=== PATIENT | female | born 1985 | race African-American/Black ===

== ENCOUNTER 2017-10-26 20:28 | Emergency (ER) | payer BC ==
[2017-10-26] MEDS ORDERED: ASPIRIN 81 MG TABLET, CHEWABLE PO ONE (20:50)
--- NOTE | 2017-10-26 20:50 | ER Document Report ---
ED Medical Screen (RME) - General Chief Complaint: Chest Pain Stated Complaint: CHEST PAIN Time Seen by Provider: 10/26/17 20:37 Notes: RAPID MEDICAL EVALUATION DISCLOSURE I have seen this patient as part of a Rapid Medical Evaluation and, if applicable, placed any initially appropriate orders. The patient will be seen and fully evaluated, including a full history and physical exam, by a provider ( in Main ED or Fast Track) when a room becomes available. 32-year-old female PMH hypertension here with complaints of left-sided sharp chest pain radiating up to the left shoulder and to the back that started yesterday and has progressed into today. She has had associated nausea and dizziness but no shortness of breath or vomiting or diaphoresis. She is supposed to be on blood pressure medication but has been off of it for the last 2 months because she has been working out a lot to try to get her blood pressure under control since she wants to join the . She tried 1 of her blood pressure pills today to see if this would help with the symptoms. She denies any prior history of [place] or coronary artery disease. TRAVEL OUTSIDE OF THE [place] IN LAST 30 DAYS: No
[2017-10-26 21:21] LABS: ABSOLUTE BASOPHILS # (AUTO) 0.1 10^3/uL (0.0-0.2); ABSOLUTE EOSINOPHILS # (AUTO) 0.2 10^3/uL (0.0-0.6); ABSOLUTE LYMPHOCYTES (AUTO) 2.4 10^3/uL (0.5-4.7); ABSOLUTE MONOCYTES (AUTO) 0.5 10^3/uL (0.1-1.4); ABSOLUTE NEUT (AUTO) 5.3 10^3/uL (1.7-8.2); BASOPHILS % (AUTO) 0.8 % (0-2); EOSINOPHILS % (AUTO) 2.6 % (0-6); HEMATOCRIT 40.8 % (36.0-47.0); HEMOGLOBIN 14.5 g/dL (12.0-15.5); LYMPHOCYTES % (AUTO) 28.4 % (13-45); MEAN CORPUSCULAR HEMOGLOBIN 34.3 pg (27.0-33.4); MEAN CORPUSCULAR HGB CONC 35.7 g/dL (32.0-36.0); MEAN CORPUSCULAR VOLUME 96 fl (80-97); MONOCYTES % (AUTO) 5.8 % (3-13); PLATELET COUNT 252 10^3/uL (150-450); RED BLOOD COUNT 4.24 10^6/uL (3.72-5.28); SEGMENTED NEUTROPHILS % (AUTO) 62.4 % (42-78); TOTAL CELLS COUNTED % (AUTO) 100 %; WHITE BLOOD COUNT 8.5 10^3/uL (4.0-10.5)
[2017-10-26 21:22] LABS: APPEARANCE,URINE SLIGHTLY-CLOUDY; BILIRUBIN,URINE NEGATIVE (NEGATIVE); COLOR,URINE YELLOW; GLUCOSE, URINE NEGATIVE (NEGATIVE); KETONES,URINE NEGATIVE (NEGATIVE); LEUKOCYTE ESTERASE,URINE LARGE (NEGATIVE); NITRITE,URINE NEGATIVE (NEGATIVE); PROTEIN,URINE NEGATIVE (NEGATIVE); URINE SPECIFIC GRAVITY 1.016; UROBILINOGEN,URINE NEGATIVE mg/dL (<2.0)
--- NOTE | 2017-10-26 21:27 | RADIOLOGY REPORT (SQ) ---
EXAM DESCRIPTION: CHEST 2 VIEWS COMPLETED DATE/TIME: 10/26/2017 9:17 pm REASON FOR STUDY: CP COMPARISON: None. EXAM PARAMETERS: NUMBER OF VIEWS: two views TECHNIQUE: Digital Frontal and Lateral radiographic views of the chest acquired. RADIATION DOSE: NA LIMITATIONS: none FINDINGS: LUNGS AND PLEURA: No opacities, masses or pneumothorax. No pleural effusion. MEDIASTINUM AND HILAR STRUCTURES: No masses or contour abnormalities. HEART AND VASCULAR STRUCTURES: Heart normal size. No evidence for failure. BONES: No acute findings. HARDWARE: None in the chest. OTHER: No other significant finding. IMPRESSION: NO ACUTE RADIOGRAPHIC FINDING IN THE CHEST. TECHNICAL DOCUMENTATION: JOB ID: [id number] [place]-[id number] [employer]- All Rights Reserved Reading location - IP/workstation name: [email or web address]
[2017-10-26 21:38] LABS: ANION GAP 13 (5-19); BLOOD UREA NITROGEN 17 mg/dL (7-20); CARBON DIOXIDE 29 mmol/L (22-30); CHLORIDE 99 mmol/L (98-107); GLUCOSE 117 mg/dL (75-110); POTASSIUM 3.9 mmol/L (3.6-5.0); SODIUM 140.9 mmol/L (137-145)
--- NOTE | 2017-10-26 21:42 | ER Document Report ---
ED General - General Chief Complaint: Chest Pain Stated Complaint: CHEST PAIN Time Seen by Provider: 10/26/17 20:37 Notes: Patient is a 32-year-old female comes emergency department for chief complaint of pain in the left upper side of her chest. She states pain started yesterday , it worsened today after she finished working out, she states it hurts when she moves. At rest she denies any symptoms. She denies shortness of breath, nausea vomiting, fever or chills. She denies remembering any injury. She denies smoking, she denies any recreational drugs, denies alcohol. She denies any daily medications, previously was on blood pressure medication but has come off with diet and exercise. She denies any known family history of cardiac disease. She denies recent travel or surgery. TRAVEL OUTSIDE OF THE [place] IN LAST 30 DAYS: No Past Medical History - General Information source: Patient - Social History Smoking Status: Never Smoker Chew tobacco use (# tins/day): No Frequency of alcohol use: None Drug Abuse: None Lives with: Family Family History: Reviewed & Not Pertinent Patient has suicidal ideation: No Patient has homicidal ideation: No - Past Medical History Cardiac Medical History: Reports: Hx Hypertension Renal/ Medical History: Denies: Hx Peritoneal Dialysis Review of Systems - Review of Systems Constitutional: No symptoms reported EENT: No symptoms reported Cardiovascular: See HPI Respiratory: No symptoms reported Gastrointestinal: No symptoms reported Genitourinary: No symptoms reported Female Genitourinary: No symptoms reported Musculoskeletal: See HPI Skin: No symptoms reported Hematologic/Lymphatic: No symptoms reported Neurological/Psychological: No symptoms reported Physical Exam - Vital signs Vitals: Temp Pulse Resp BP Pulse Ox 98.6 F 88 16 136/96 H 99 10/26/17 20:48 10/26/17 20:48 10/26/17 20:48 10/26/17 20:48 10/26/17 20:48 Interpretation: Normal - General General appearance: Appears well, Alert - HEENT Head: Normocephalic, Atraumatic Eyes: Normal Pupils: PERRL - Respiratory Respiratory status: No respiratory distress Chest status: Tender - Tenderness which is reproducible over the left upper chest wall just inferior to the left clavicle, remaining chest is nontender, unremarkable exam otherwise Breath sounds: Normal Chest palpation: Normal - Cardiovascular Rhythm: Regular Heart sounds: Normal auscultation, S1 appreciated, S2 appreciated Murmur: No Normal capillary refill: Yes - Abdominal Inspection: Normal Distension: No distension Bowel sounds: Normal Tenderness: Nontender. No: Tender, Guarding Organomegaly: No organomegaly - Back Back: Normal, Nontender - Extremities General upper extremity: Normal inspection, Nontender, Normal color, Normal ROM , Normal temperature General lower extremity: Normal inspection, Nontender, Normal color, Normal ROM , Normal temperature, Normal weight bearing. No: Angelia's sign - Neurological Neuro grossly intact: Yes Cognition: Normal Orientation: AAOx4 Kenner Coma Scale Eye Opening: Spontaneous Deny Coma Scale Verbal: Oriented Kenner Coma Scale Motor: Obeys Commands Kenner Coma Scale Total: 15 Speech: Normal Motor strength normal: LUE, RUE, LLE, RLE Sensory: Normal - Psychological Associated symptoms: Normal affect, Normal mood - Skin Skin Temperature: Warm Skin Moisture: Dry Skin Color: Normal Course - Re-evaluation Re-evalutation: Patient very well-appearing, chest x-ray unremarkable, EKG sinus rhythm with no T-wave inversions or ST segment changes in consecutive leads. Laboratory workup is unremarkable including cardiac enzymes which was performed from triage. Patient has reproducible chest wall pain, pain is worse with movement, appears to be the source. Very low suspicion of ACS, PE, aortic dissection, or even infection. Discussed with patient, after discussion of different options patient prefers anti-inflammatory, this was provided, discussed follow-up, return precautions, patient states satisfaction and agreement. - Vital Signs Vital signs: Temp Pulse Resp BP Pulse Ox 98.6 F 88 19 119/92 H 99 10/26/17 20:48 10/26/17 20:48 10/26/17 23:01 10/26/17 23:01 10/26/17 23:01 - Laboratory Result Diagrams: 10/26/17 20:55 10/26/17 20:55 Laboratory results interpreted by me: 10/26/17 10/26/17 10/26/17 20:55 20:55 20:55 MCH 34.3 H Glucose 117 H Urine Blood SMALL H Ur Leukocyte Esterase LARGE H Discharge - Discharge Clinical Impression: Chest wall pain Condition: Stable Disposition: HOME, SELF-CARE Additional Instructions: Your workup does not show concerning abnormalities, your examination and evaluation are consistent with costochondritis as discussed. I recommend the naproxen as prescribed, avoid lifting or twisting, symptoms should improve and resolve with time. See additional instructions below. Return for any concerning symptoms. Costochondritis Your chest pain is coming from the rib cartilages in the chest wall. This is often caused by subtle straining of the ribs near the breastbone. The strain can occur from a mild injury, coughing or sneezing with a "cold," vigorous vomiting, or even from rib compression while sleeping. Often the pain doesn't begin until a couple of days after the strain. Persons with arthritis are especially prone to this type of pain, due to inflammation of the cartilage joints near the breast bone. But often, there is no clear reason why it happens. Rest from strenuous physical activity. This kind of chest pain is usually made worse by movement of the chest. Depending on the symptoms, we may prescribe medicine for pain and inflammation. Apply gentle warmth to the painful area for 15 minutes every hour or two. You should call contact the doctor immediately if things change. Further evaluation is needed if you develop a fever or cough, if the nature of the pain changes, or if you become short of breath. Prescriptions: Naproxen 500 mg PO BID #20 tablet
[2017-10-26 23:05] VITALS: BP 119/92
--- NOTE | 2017-10-27 07:27 | EKG REPORT ---
SEVERITY:- ABNORMAL ECG - SINUS RHYTHM PROBABLE LEFT ATRIAL ABNORMALITY PROBABLE LEFT VENTRICULAR HYPERTROPHY : Confirmed by: Christiano Adkins MD 27-Oct-2017 07:26:57
== END 2017-10-26 23:05 | disposition home or self-care (01) ==
LOC: ER 20:28
DX: R07.89 Other chest pain (principal); I10 Essential (primary) hypertension
CPT/HCPCS: 36415; 71046; 80048; 81001; 81025; 84484; 85025; 93005; 93010; 99285

== ENCOUNTER 2018-01-19 17:15 | Emergency (ER) | payer BC ==
[2018-01-19 17:26] VITALS: BP 133/92
--- NOTE | 2018-01-19 17:37 | ER Document Report ---
ED General - General Chief Complaint: Abdominal Pain Stated Complaint: LEFT KNEE PAIN, SWELLING Time Seen by Provider: 01/19/18 17:26 Mode of Arrival: Ambulatory Information source: Patient Notes: Chief complaint: Left knee pain History of complain:( obtained from----patient) 32 years old female 2 days ago while she was getting off the seated position with the knee bend suddenly felt a pop when she was trying to extend and since then Pain over the back of the knee as well as pain over the left hip. Therefore present to the ED able to ambulate without major discomfort. Onset: As above sudden Duration: 2 days ago Severity: Mild to moderate Quality: Sharp Context: As described above Exacerbating factor and relieving factors: Bending the knee REVIEW OF SYSTEMS: CONSTITUTIONAL : Denies fever, chills, or sweats. Denies recent illness. EENT: Denies eye, ear, throat, or mouth pain or symptoms. Denies nasal or sinus congestion or discharge. Denies throat, tongue, or mouth swelling or difficulty swallowing. CARDIOVASCULAR: Denies chest pain. Denies palpitations or racing or irregular heart beat. Denies ankle edema. RESPIRATORY: Denies cough, cold, or chest congestion. Denies shortness of breath, difficulty breathing, or wheezing. GASTROINTESTINAL: Denies distention. Denies nausea, vomiting, or diarrhea. Denies blood in vomitus, stools, or per rectum. Denies black, tarry stools. Denies constipation. GENITOURINARY: Denies difficulty urinating, painful urination, burning, frequency, blood in urine, or discharge. FEMALE GENITOURINARY: Denies vaginal bleeding, heavy or abnormal periods, irregular periods. Denies vaginal discharge or odor. MUSCULOSKELETAL: Denies back or neck pain or stiffness. Denies joint pain or swelling. SKIN: Denies rash, lesions or sores. HEMATOLOGIC : Denies easy bruising or bleeding. LYMPHATIC: Denies swollen, enlarged glands. NEUROLOGICAL: Denies confusion or altered mental status. Denies passing out or loss of consciousness. Denies dizziness or lightheadedness. Denies headache. Denies weakness or paralysis or loss of use of either side. Denies problems with gait or speech. Denies sensory loss, numbness, or tingling. Denies seizures. PSYCHIATRIC: Denies anxiety or stress. Denies depression, suicidal ideation, or homicidal ideation. ALL OTHER SYSTEMS REVIEWED AND NEGATIVE. PHYSICAL EXAMINATION: GENERAL: Well-appearing, well-nourished and in no acute distress. HEAD: Atraumatic, normocephalic. EYES: Pupils equal round and reactive to light, extraocular movements intact, conjunctiva are normal. ENT: Nares patent, oropharynx clear without exudates. Moist mucous membranes. NECK: Normal range of motion, supple without lymphadenopathy LUNGS: Breath sounds clear to auscultation bilaterally and equal. No wheezes rales or rhonchi. HEART: Regular rate and rhythm without murmurs ABDOMEN: Soft, nontender, nondistended abdomen. No guarding, no rebound. No masses appreciated. Examination of genitals-deferred Musculoskeletal: Examination of the left knee-anteriorly no swelling was noted no fluctuant fluid, is not erythematous or warm. Examination of the back of the knee shows slight swelling with Reyna's cyst. The range of motion is full for flexion and extension. No free anterior-posterior movement noted. Right inguinal region-no hernia noted. Slight tenderness over the muscles noted particularly over the hip muscles. Range of motion of the hip is within normal limit.. NEUROLOGICAL: Cranial nerves grossly intact. Normal speech, normal gait. Normal sensory, motor exams PSYCH: Normal mood, normal affect. SKIN: Warm, Dry, normal turgor, no rashes or lesions noted. Dictation was performed using [employer] voice recognition software TRAVEL OUTSIDE OF THE [place] IN LAST 30 DAYS: No - HPI Notes: Dictated - Related Data Allergies/Adverse Reactions: No Known Allergies Allergy (Unverified 01/19/18 17:19) Past Medical History - Social History Smoking Status: Never Smoker Frequency of alcohol use: None Drug Abuse: None Lives with: Family Family History: Reviewed & Not Pertinent - Past Medical History Cardiac Medical History: Reports: Hx Hypertension Renal/ Medical History: Denies: Hx Peritoneal Dialysis Review of Systems - Review of Systems Notes: Dictated Physical Exam - Vital signs Vitals: Temp Pulse Resp BP Pulse Ox 98.7 F 95 14 133/92 H 98 01/19/18 17:23 01/19/18 17:23 01/19/18 17:23 01/19/18 17:23 01/19/18 17:23 - Notes Notes: Dictated Course - Vital Signs Vital signs: Temp Pulse Resp BP Pulse Ox 98.7 F 95 14 133/92 H 98 01/19/18 17:23 01/19/18 17:23 01/19/18 17:23 01/19/18 17:23 01/19/18 17:23 Discharge - Discharge Clinical Impression: Bakers cyst Qualifiers: Laterality: left Qualified Code(s): M71.22 - Synovial cyst of popliteal space [ Reyna], left knee Left knee pain Qualifiers: Chronicity: acute Qualified Code(s): M25.562 - Pain in left knee Inguinal strain Qualifiers: Encounter type: initial encounter Laterality: left Qualified Code(s): S76.212A - Strain of adductor muscle, fascia and tendon of left thigh, initial encounter Condition: Fair Disposition: HOME, SELF-CARE Instructions: Sprained Knee ([facility]) Prescriptions: Naproxen 500 mg PO BID #30 tablet Referrals: JESUS MCCLURE MD [Primary Care Provider] - Follow up as needed
== END 2018-01-19 17:56 | disposition home or self-care (01) ==
LOC: ER 17:15
DX: M71.22 Synovial cyst of popliteal space [Baker], left knee (principal); M25.562 Pain in left knee; R10.9 Unspecified abdominal pain; M79.89 Other specified soft tissue disorders; I10 Essential (primary) hypertension; X58.XXXA Exposure to other specified factors, initial encounter
CPT/HCPCS: 99283

== ENCOUNTER 2018-09-04 21:05 | Emergency (ER) | payer BC, OTHER ==
[2018-09-04 21:15] VITALS: BP 132/87
--- NOTE | 2018-09-04 22:45 | RADIOLOGY REPORT (SQ) ---
EXAM DESCRIPTION: XR RIGHT KNEE 4 OR MORE VIEWS COMPLETED DATE/TME: 09/04/2018 00:00 CLINICAL HISTORY: 33 years, Female, Bilateral knee pain x 3 wks. Swelling. COMPARISON: None. NUMBER OF VIEWS: TECHNIQUE: LIMITATIONS: None. FINDINGS: There is a possible small knee joint effusion. No fracture or dislocation. There is a bipartite patella, a congenital variant. Mineralization of bone appears normal. IMPRESSION: Possible small knee joint effusion. copyright 2010 [employer]- All Rights Reserved
--- NOTE | 2018-09-04 22:46 | RADIOLOGY REPORT (SQ) ---
EXAM DESCRIPTION: XR LEFT KNEE 4 OR MORE VIEWS COMPLETED DATE/TME: 09/04/2018 00:00 CLINICAL HISTORY: 33 years, Female, Bilateral knee pain x 3 wks. Swelling. COMPARISON: None. NUMBER OF VIEWS: TECHNIQUE: LIMITATIONS: None. FINDINGS: There is a possible small knee joint effusion. No fracture or dislocation. No evidence of arthritis. Mineralization of bone appears normal. IMPRESSION: Possible small knee joint effusion. copyright 2010 [employer]- All Rights Reserved
--- NOTE | 2018-09-04 22:57 | ER Document Report ---
HPI - HPI Time Seen by Provider: 09/04/18 22:46 Pain Level: 4 Context: Patient is a 33-year-old female that comes to the emergency department for chief complaint of bilateral knee pain. This is been going on for some time, patient states it is worse now, he states initially she felt a pop in her left knee, then she started hurting in her right knee, now both knees hurt. She has no pain when she is not walking, she only has pain with walking. She denies any swelling, redness, fever/chills, or injury. She denies history of the same. Only past medical history is hypertension and PCOS. LMP within the past month. - REPRODUCTIVE Reproductive: DENIES: : - DERM Skin Color: Normal Past Medical History - General Information source: Patient - Social History Smoking Status: Never Smoker Frequency of alcohol use: None Drug Abuse: None Lives with: Family Family History: Reviewed & Not Pertinent Patient has suicidal ideation: No Patient has homicidal ideation: No - Past Medical History Cardiac Medical History: Reports: Hx Hypertension Renal/ Medical History: Denies: Hx Peritoneal Dialysis Surgical Hx: Negative - Immunizations Immunizations up to date: Yes Hx Diphtheria, Pertussis, Tetanus Vaccination: Yes Vertical Provider Document - CONSTITUTIONAL General Appearance: WD/WN, No Apparent Distress - INFECTION CONTROL TRAVEL OUTSIDE OF THE [place] IN LAST 30 DAYS: No - HEENT HEENT: Atraumatic, Normal ENT Exam, Normocephalic - NECK Neck: Normal Inspection - RESPIRATORY Respiratory: Breath Sounds Normal, No Respiratory Distress - CARDIOVASCULAR Cardiovascular: Regular Rate, Regular Rhythm - GI/ABDOMEN Gastrointestinal: Abdomen Soft, Abdomen Non-Tender - BACK Back: Normal Inspection - MUSCULOSKELETAL/EXTREMETIES Musculoskeletal/Extremeties: MAEW, FROM, Non-Tender - Nontender knees b ilaterally. Full range of motion. No erythema, swelling, or abnormal findings on gross examination. Positive Debbie's test with minimal grinding and popping. Normal distal neurovascular exam. Normal lower extremity exams otherwise - NEURO Level of Consciousness: Awake, Alert, Appropriate - DERM Integumentary: Warm, Dry, No Rash Course - Re-evaluation Re-evalutation: Patient actually has a very benign evaluation on exam. She has no symptoms at rest, she has symptoms during change of position and walking, however she does not always have symptoms. She does have some popping occasionally and her physical examination shows positive Debbie suggesting meniscal involvement bilaterally. She does not have any abnormal erythema, tenderness, or concerning finding on exam. She has full range of motion without difficulty. X-rays show possible tiny effusions, no acute findings otherwise. Discussed x- rays with patient. Discussed recommendations, orthopedic follow-up, return precautions in detail. Patient states understanding and agreement. 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 Your examination suggests meniscus injuries in both knees. This can heal with time, I recommend that you take the prescribed anti-inflammatory, apply ice to the knees 3-4 times a day for 10-15 minutes if possible, attempt to rest the knees. You can also do thigh strengthening exercises to improve the knee joint. If symptoms continue follow-up with the orthopedic referral for additional evaluation and management. Return for any concerning symptoms including severe swelling or pain. Prescriptions: Naproxen 500 mg PO BID PRN #20 tablet PRN Reason: Forms: Return to Work Referrals: TAYLER COTTRELL MD [ACTIVE STAFF] - Follow up in 1 week
== END 2018-09-04 23:04 | disposition home or self-care (01) ==
LOC: ER 21:05
DX: M25.561 Pain in right knee (principal); M25.562 Pain in left knee; I10 Essential (primary) hypertension
CPT/HCPCS: 99283

== ENCOUNTER → 2018-11-24 | Outpatient (CLI) | payer OTHER ==
--- NOTE | 2018-11-24 14:45 | RADIOLOGY REPORT (SQ) ---
EXAM DESCRIPTION: MRI LT LOWER JOINT WITHOUT COMPLETED DATE/TIME: 11/24/2018 2:14 pm REASON FOR STUDY: M23.92 UNSPECIFIED INTERNAL DERANGEMENT OF LEFT KNEE M23.92 UNSPECIFIED INTERNAL DERANGEMENT OF LEFT KNEE COMPARISON: Left knee plain films 09/04/2018 TECHNIQUE: Leftknee images acquired and stored on PACS. Multiplanar images include fat sensitive se quences as T1, water sensitive sequences as FST2 or STIR, cartilage sensitive sequences as FSPD, and gradient echo sequences. LIMITATIONS: None. FINDINGS: JOINT AND BURSAE: Moderate size suprapatellar knee joint effusion. No Reyna's cyst. BONE CORTEX AND MARROW: No alteration of signal to suggest marrow replacement. No worrisome bone lesi ons. No occult fracture. ACL: Intact. No degeneration or ganglion cyst. PCL: Intact. MCL: Intact. No periligamentous edema or fluid. LCL: Intact. No periligamentous edema or fluid. MEDIAL MENISCUS: Diffuse horizontal tear mid body and posterior horn medial meniscus, best shown on c oronal images 13-19 and sagittal images 5-9. LATERAL MENISCUS: No tears. No abnormal signal. MEDIAL COMPARTMENT: Cartilage preserved. No bone bruises or reactive marrow edema. No osteophytes. LATERAL COMPARTMENT: Cartilage preserved. No bone bruises or reactive marrow edema. No osteophytes. PATELLA: Minimal medial patellar facet chondromalacia. No subchondral cysts. Medial and lateral retin acula intact. EXTENSOR MECHANISM: Intact. Quadriceps and patella tendons normal. SOFT TISSUES: Adjacent muscles and subcutaneous tissues normal. Normal flow void in popliteal artery and vein. OTHER: No other significant finding. IMPRESSION: Diffuse horizontal tear, midbody and posterior horn medial meniscus. Moderate size suprapatellar knee joint effusion TECHNICAL DOCUMENTATION: JOB ID: [id number] [employer]- All Rights Reserved Reading location - IP/workstation name: [email or web address] [email or web address]
== END ==
LOC: RAD 12:27
PROVIDERS: ATTEND Orthopaedic Surgery Sports Medicine
DX: M23.92 Unspecified internal derangement of left knee (principal); M25.461 Effusion, right knee

== ENCOUNTER → 2019-04-18 | Outpatient (CLI) | payer OTHER ==
--- NOTE | 2019-04-19 13:16 | RADIOLOGY REPORT (SQ) ---
EXAM DESCRIPTION: MRI RT LOWER JOINT WITHOUT COMPLETED DATE/TIME: 04/18/2019 8:42 pm REASON FOR STUDY: M23.91 UNSPECIFIED INTERNAL DERANGEMENT OF RIGHT KNEE M23.91 UNSPECIFIED INTERNAL DERANGEMENT OF RIGHT KNEE COMPARISON: None. TECHNIQUE: Rightknee images acquired and stored on PACS. Multiplanar images include fat sensitive s equences as T1, water sensitive sequences as FST2 or STIR, cartilage sensitive sequences as FSPD, and gradient echo sequences. LIMITATIONS: Motion artifact. FINDINGS: JOINT AND BURSAE: No effusion. BONE CORTEX AND MARROW: No alteration of signal to suggest marrow replacement. No worrisome bone lesi ons. No occult fracture. ACL: Intact. No degeneration or ganglion cyst. PCL: Intact. MCL: Intact. No periligamentous edema or fluid. LCL: Intact. No periligamentous edema or fluid. MEDIAL MENISCUS: Oblique horizontal tear extending into the body. No displaced meniscal fragment. LATERAL MENISCUS: No tears. No abnormal signal. MEDIAL COMPARTMENT: 2 mm focal osteochondral lesion. Subtle adjacent edema in the femoral condyle. No loose body identified. LATERAL COMPARTMENT: Cartilage preserved. No bone bruises or reactive marrow edema. No osteophytes. PATELLA: No chondromalacia. No subchondral cysts. Medial and lateral retinacula intact. EXTENSOR MECHANISM: Intact. Quadriceps and patella tendons normal. SOFT TISSUES: Adjacent muscles and subcutaneous tissues normal. Normal flow void in popliteal artery and vein. OTHER: No other significant finding. IMPRESSION: 1. Horizontal tear posterior horn medial meniscus extending into the body. 2. Small focal osteochondral lesion medial femoral condyle. No loose body identified. TECHNICAL DOCUMENTATION: JOB ID: [id number]- All Rights Reserved Reading location - IP/workstation name: [email or web address]
== END ==
LOC: RAD 18:26
PROVIDERS: ATTEND Specialist/Technologist Athletic Trainer
DX: M23.91 Unspecified internal derangement of right knee (principal)